=== PATIENT | female | born 1995 | race Caucasian/White ===

== ENCOUNTER 2023-08-21 13:19 | Inpatient (IN) | payer BC ==
[2023-08-21] MEDS ORDERED: hydrALAZINE 20 MG/ML VIAL SLOW IVP PRN ×2 (15:19→16:31)
[2023-08-21] MEDS ORDERED: Promethazine HCl 25 MG/ML VIAL IM PRN (16:31)
[2023-08-21] MEDS ORDERED: Lidocaine 1% (PF) 30 ML VIAL SC PRN (16:31)
[2023-08-21] MEDS ORDERED: Ondansetron PF 4 MG/2 ML Vial IVP PRN (16:31)
[2023-08-21] MEDS ORDERED: Acetaminophen 500 MG TAB PO PRN (16:33)
[2023-08-21] MEDS ORDERED: Diphenoxylate HCl/Atropine Tablet PO PRN (16:33)
[2023-08-21] MEDS ORDERED: Carboprost 250 MCG/ML AMP IM PRN (16:33)
[2023-08-21] MEDS ORDERED: Tranexamic Acid 1,000 MG/10 ML VIAL IVP PRN (16:33)
[2023-08-21] MEDS ORDERED: Methylergonovine 0.2 MG/ML VIAL IM PRN (16:33)
[2023-08-21 17:14] LABS: Hematocrit 34.2 % (34.9-44.5); Hemoglobin 11.9 g/dL (12.0-15.5); Mean Corpuscular HGB CONC 34.8 g/dL (32.0-36.0); Mean Corpuscular Hemoglobin 33.5 pg (27.0-33.0); Mean Corpuscular Volume 96.3 fl (81.6-98.3); Mean Platelet Volume 11.5 fl (7.4-10.4); Platelet Count 170 10x3/uL (150-450); RBC Distribution Width 12.7 % (11.5-14.5); Red Blood Cell (RBC) Count 3.55 10x6/uL (3.90-5.03); White Blood Cell (WBC) Count 9.8 10x3/uL (3.5-10.5)
[2023-08-21 17:47] LABS: HBSAg Index 0.14 S/CO (0-0.99); Hep B Surf Ag - L&D Non-Reactive S/CO (NonReactive)
[2023-08-21 18:35] LABS: Syphilis Antibody Nonreactive (Nonreactive); Syphilis Antibody Index 0.04 S/CO (<1.00 Non-Reactive)
[2023-08-21 20:15] VITALS: BMI 25.6
[2023-08-21] MEDS ORDERED: Oxytocin 30 units/NS 500 ML 500 ML IV SCH (20:15)
[2023-08-22] MEDS ORDERED: Oxytocin 30 units/NS 500 ML 500 ML ONE (00:32)
[2023-08-22 01:15] LABS: pH (Cord, venous) 7.444 (7.250-7.350)
[2023-08-22] MEDS ORDERED: Misoprostol 200 MCG TAB VAG PRN (06:18)
[2023-08-22] MEDS ORDERED: Boostrix 0.5 ML (Tdap) VIAL (>/=7 yrs of age) IM ONE (06:18)
[2023-08-22] MEDS ORDERED: diphenhydrAMINE 25 MG CAP PO PRN (06:18)
[2023-08-22] MEDS ORDERED: hydrALAZINE 20 MG/ML VIAL SLOW IVP PRN (06:18)
[2023-08-22] MEDS ORDERED: Milk Of Magnesia 30 ML UDCUP PO PRN (06:18)
[2023-08-22] MEDS ORDERED: Lanolin Ointment 7 GM TUBE TOP PRN (06:18)
[2023-08-22] MEDS ORDERED: Bisacodyl 10 MG SUPP PR PRN (06:18)
[2023-08-22] MEDS ORDERED: Oxytocin 30 units/NS 500 ML 500 ML IV SCH (06:18)
[2023-08-22] MEDS ORDERED: Methylergonovine 0.2 MG/ML VIAL IM PRN (06:18)
[2023-08-22] MEDS ORDERED: Preparation H Ointment 28 GM TUBE PR PRN (06:18)
[2023-08-22] MEDS ORDERED: Benzocaine-Menthol 82.5 ML CAN TOP PRN (06:18)
[2023-08-22] MEDS ORDERED: Ondansetron PF 4 MG/2 ML Vial IVP PRN (06:18)
[2023-08-22] MEDS: Ferrous Sulfate 325 MG TAB PO SCH (16:26)
[2023-08-22] MEDS: Docusate 100 MG CAP PO SCH ×2 (16:26→21:00)
[2023-08-22] MEDS: Prenatal Vitamin 1 TAB PO SCH (16:26)
[2023-08-22] MEDS: Ibuprofen 800 MG TAB PO SCH ×2 (16:26→22:30)
[2023-08-23] MEDS: Ferrous Sulfate 325 MG TAB PO SCH (07:07)
[2023-08-23] MEDS: Docusate 100 MG CAP PO SCH (07:35)
[2023-08-23] MEDS: Ibuprofen 800 MG TAB PO SCH (07:35)
[2023-08-23] MEDS: Prenatal Vitamin 1 TAB PO SCH (07:35)
[2023-08-23 19:14] VITALS: BP 120/58; TEMP 98
== END 2023-08-23 10:00 | disposition home or self-care (01) | DRG 807 ==
LOC: CSHLD/OP 13:19 → CSHLD 17:44 → CSHPP 08-22 15:42
PROVIDERS: ADMIT Obstetrics & Gynecology; ATTEND Obstetrics & Gynecology
PROC: 10E0XZZ Delivery of Products of Conception, External Approach (ICD-10-PCS; principal; 2023-08-22)
PROC: 4A043R1 Measurement of Venous Saturation, Peripheral, Percutaneous Approach (ICD-10-PCS; 2023-08-22)
DX: O80 Encounter for full-term uncomplicated delivery (principal); Z37.0 Single live birth; Z3A.39 39 weeks gestation of pregnancy
CPT/HCPCS: 36415; 82805; 85027; 86780; 86850; 86900; 86901; 87340; 99285; J2405